=== PATIENT | male | born 1985 | race Caucasian/White ===

== ENCOUNTER 2025-02-19 07:17 | Observation (INO) | payer BC ==
[2025-02-19] MEDS ORDERED: PROPOFOL 20 ML ONE ×2 (07:40→10:06)
[2025-02-19] MEDS ORDERED: Rocuronium Bromide 10 MG/ML (10ML VIAL) ONE (07:40)
[2025-02-19] MEDS ORDERED: Ondansetron PF 4 MG/2 ML Vial ONE (07:40)
[2025-02-19] MEDS ORDERED: SUGAMMADEX SODIUM 200 MG/2 ML VIAL ONE (07:40)
[2025-02-19] MEDS ORDERED: SUCCINYLCHOLINE/SOD CL,ISO/PF 200 MG/10 ML SYRINGE FS ONE (07:40)
[2025-02-19] MEDS ORDERED: PHENYLEPHRINE-NS 100 MCG/ML 10 ML SYRINGE ONE (08:18)
[2025-02-19] MEDS ORDERED: Tranexamic Acid 1,000 MG/10 ML VIAL ONE (08:21)
[2025-02-19] MEDS ORDERED: Lidocaine 1% w/Epinephrine 1:100K 20 ML VIAL ONE (08:28)
[2025-02-19] MEDS ORDERED: Glycopyrrolate 0.2 MG/ML 5 ML SYRINGE ONE (08:39)
[2025-02-19] MEDS ORDERED: Ondansetron PF 4 MG/2 ML Vial IVP PRN (11:00)
[2025-02-19 13:58] VITALS: BMI 58.7
[2025-02-19 14:07] VITALS: BP 143/69
[2025-02-19] MEDS: Acetaminophen 325 MG TAB PO PRN (14:18)
[2025-02-19] MEDS: Sodium Chloride 0.65% Nasal 44 ML BOT EA NARE SCH (14:46)
[2025-02-19] MEDS: FLU (Fluarix Triv) 25-26 (6MOS UP)/PF 45 MCG/0.5 ML Syringe IM ONE (15:15)
[2025-02-19] MEDS: Oxymetazoline HCl 0.05% (15 ML) NASAL PRN (18:05)
[2025-02-20 09:38] VITALS: TEMP 97.8
== END 2025-02-20 09:40 | disposition home or self-care (01) ==
LOC: CSHSDC 07:17 → CSHICU 13:29
PROVIDERS: ADMIT Otolaryngology Otolaryngic Allergy; ATTEND Otolaryngology Otolaryngic Allergy
PROC: 09TV8ZZ Resection of Left Ethmoid Sinus, Via Natural or Artificial Opening Endoscopic (ICD-10-PCS; principal; 2025-02-19)
PROC: 09TU8ZZ Resection of Right Ethmoid Sinus, Via Natural or Artificial Opening Endoscopic (ICD-10-PCS; 2025-02-19)
DX: J32.9 Chronic sinusitis, unspecified (principal); J30.9 Allergic rhinitis, unspecified; J33.9 Nasal polyp, unspecified; J34.2 Deviated nasal septum; J34.3 Hypertrophy of nasal turbinates; G47.33 Obstructive sleep apnea (adult) (pediatric)
CPT/HCPCS: 87070; 87077; 87102; 87205; 87206; 88305; 88311; 94760; 94762; J0169; J1100; J2250; J2704; J3010; J3301